=== PATIENT | female | born 1945 | race Caucasian/White ===

== ENCOUNTER 2017-04-26 12:09 | Emergency (ER) | payer MEDICARE, OTHER ==
[~2017-04-26] VITALS: Ht 157.5 cm; Wt 101.2 kg
[~2017-04-26 12:09] MED LIST: AMLO5TAB2; ASCO500T2; ASPI-630; BIFI4CAP; DRON400T PO; FERR-36; FURO40TA4; GABA-586; GLIM1TAB2; HYDR100T24; ISOS120T; LABE200T2; LABE200T2 PO; LOSA100T6; MELO7.5T29; OMEP20TA63; POTA20TA82 PO; SENN-79 PO; WARF2.5T71; WARF5TAB7; [UNRECOGNIZED DRUG - CODE] PO
--- NOTE | 2017-04-26 13:10 | PHYS DOC ---
Past Medical History Past Medical History: A-Fib, Anemia, Diabetes-Type II, GERD, Hypertension, Other Additional Past Medical Histor: CHRONIC NECK/BACK PAIN Past Surgical History: Appendectomy, Knee Replacement, Tonsillectomy, Other Additional Past Surgical Histo: D&C, Cardiac Cath, BREAST BX Alcohol Use: None Drug Use: None Adult General Chief Complaint Chief Complaint: HIP PAIN HPI HPI Patient is pleasant 71-year-old female with history of chronic neck and back pain who presents with hip pain that began a week ago. Patient was seen in urgent care told she had bursitis and placed on anti-inflammatories and steroids. Patient has noted increasing pain over the right hip with no obvious trauma. She denies any fevers, chills, rash she has increased pain with range of motion and ambulation. She denies any numbness and tingling to the legs or the buttocks. She denies any UTI symptoms, nausea, vomiting, diarrhea or other symptoms. Patient denies any back pain or abdominal pain. She says pain is a 10 of 10 with walking it is tolerable at rest 5 out of 10. She had an episode like this a year ago around the same time which she was not able to discover the cause. Review of Systems Review of Systems Constitutional: Denies fever or chills [] Eyes: Denies change in visual acuity, redness, or eye pain [] HENT: Denies nasal congestion or sore throat [] Respiratory: Denies cough or shortness of breath [] Cardiovascular: No additional information not addressed in HPI [] GI: Denies abdominal pain, nausea, vomiting, bloody stools or diarrhea [] : Denies dysuria or hematuria [] Musculoskeletal: She has chronic lower back pain chronic back pain Integument: Denies rash or skin lesions [] Neurologic: Denies headache, focal weakness or sensory changes [] Endocrine: Denies polyuria or polydipsia [] All other systems were reviewed and found to be within normal limits, except as documented in this note. Current Medications Current Medications Current Medications Medications (Trade) Dose Ordered Sig/Katelynn Start Time Stop Time Status Last Admin Dose Admin Ketorolac Tromethamine (Toradol Im) 60 mg 1X ONCE 04/26/17 13:15 04/26/17 13:16 DC 04/26/17 13:40 60 MG Allergies Allergies Allergies Coded Allergies Type Severity Reaction Last Updated Verified benazepril HCl Allergy Intermediate "red face" 08/24/13 Yes Physical Exam Physical Exam Other vital signs recorded on the chart patient noted to be very hypertensive Constitutional: Well developed, well nourished, no acute distress, non-toxic appearance. [] Cardiovascular:Heart rate regular rhythm, no murmur [] Lungs & Thorax: Bilateral breath sounds clear to auscultation [] Abdomen: Bowel sounds normal, soft, no tenderness, no masses, no pulsatile masses. [] Skin: Warm, dry, no erythema, no rash. [] Back: Patient is significant tenderness to palpation over the lateral aspect of her right hip over this. And the Anterior superior iliac crest crest there is no bony deformity negative pelvic rock Extremities: No tenderness, no cyanosis, no clubbing, ROM intact, no edema. [] Neurologic: Alert and oriented X 3, normal motor function, normal sensory function, no focal deficits noted. [] Psychologic: Affect normal, judgement normal, mood normal. [] Current Patient Data Vital Signs Vital Signs Date Time Temp Pulse Resp B/P (MAP) Pulse Ox O2 Delivery O2 Flow Rate FiO2 04/26/17 12:32 88 193/69 (110) Room Air 04/26/17 12:13 98.3 20 97 98.3 Lab Values Laboratory Tests Test 04/26/17 13:08 White Blood Count 14.9 x10^3/uL (4.0-11.0) H Red Blood Count 5.47 x10^6/uL (3.50-5.40) H Hemoglobin 13.1 g/dL (12.0-15.5) Hematocrit 41.1 % (36.0-47.0) Mean Corpuscular Volume 75 fL (79-100) L Mean Corpuscular Hemoglobin 24 pg (25-35) L Mean Corpuscular Hemoglobin Concent 32 g/dL (31-37) Red Cell Distribution Width 16.8 % (11.5-14.5) H Platelet Count 247 x10^3/uL (140-400) Neutrophils (%) (Auto) 86 % (31-73) H Lymphocytes (%) (Auto) 8 % (24-48) L Monocytes (%) (Auto) 5 % (0-9) Eosinophils (%) (Auto) 0 % (0-3) Basophils (%) (Auto) 0 % (0-3) Neutrophils # (Auto) 12.9 x10^3uL (1.8-7.7) H Lymphocytes # (Auto) 1.3 x10^3/uL (1.0-4.8) Monocytes # (Auto) 0.8 x10^3/uL (0.0-1.1) Eosinophils # (Auto) 0.0 x10^3/uL (0.0-0.7) Basophils # (Auto) 0.0 x10^3/uL (0.0-0.2) Platelet Estimate Pending C-Reactive Protein, Quantitative 4.6 mg/L (0-3.3) H Laboratory Tests 04/26/17 13:08 EKG EKG [] Radiology/Procedures Radiology/Procedures [] [facility] [address] [place] [address] IMAGING REPORT Signed PATIENT: VANNESA GLASER ACCOUNT: [id number] : 1945 LOCATION: ER AGE: 71 SEX: F EXAM STATUS: REG ER ORD. PHYSICIAN: ЕЛЕНА SAENZ MD REASON: right hip pain PROCEDURE: CT PELVIS WO CONTRAST CT of the pelvis without contrast, 04/26/2017: History: Right hip pain Noncontrast scans were obtained with multiplanar reconstructions produced. No fracture or destructive bony lesion is seen. There is mild narrowing of both hip joints with mild marginal spurring. The periarticular soft tissues are unremarkable. There is moderate facet joint arthropathy in the lower lumbar spine with a mild chronic spondylolisthesis at L4-5. There is mild associated central spinal stenosis and foraminal narrowing bilaterally at L4-5. No pelvic mass or unusual fluid collection is seen. There are moderate arterial calcifications. No pelvic or inguinal adenopathy is evident. IMPRESSION: 1. No acute bony abnormality is detected. 2. Mild degenerative change at both hip joints. 3. Degenerative change in the lower lumbar spine with a mild associated chronic spondylolisthesis at L4-5 PQRS Compliance Statement: One or more of the following individualized dose reduction techniques were utilized for this examination: 1. Automated exposure control 2. Adjustment of the mA and/or kV according to patient size 3. Use of iterative reconstruction technique DICTATED and SIGNED BY: DENZEL FAIR MD DATE: 04/26/17 [id number] CC: ЕЛЕНА SAENZ MD; SREE PANDA Jr, MD ~ Course & Med Decision Making Course & Med Decision Making Pertinent Labs and Imaging studies reviewed. (See chart for details) []Patient presents with hip pain over the lateral aspect of the right hip that is somewhat reproducible on physical exam of the lateral aspect this. Crest and over the lateral bursa. There is no warmth, no rash, no soft tissue swelling. Patient admits it hurts when she walks although when she sitting down it is minimally uncomfortable. Patient denies any fevers, chills, night sweats, other systemic symptoms. Patient is been on steroids for last few days and has not improved symptoms. Patient is an elevated white count which might be associated with a steroid usage as opposed inflammation. Patient's CRP is mildly elevated although there is no evidence of inflammation. I concern is a bursitis that is been under treated with NSAIDs and Tylenol. I will also prescribe her exercises for iliotibial band syndrome and some for breakthrough pain if necessary. I will have her follow-up with her primary care doctor for continued management and possible inter-bursitis injections if necessary if after 4 weeks she does not have any improvement. Dragon Disclaimer Dragon Disclaimer This electronic medical record was generated, in whole or in part, using a voice recognition dictation system. Departure Departure Impression: Primary Impression: Hip bursitis Disposition: 01 HOME, SELF-CARE Condition: IMPROVED Referrals: SREE PANDA Jr, MD (PCP) Patient Instructions: Hip Bursitis Additional Instructions: discharge: I've spoken with the patient and/or caregivers. I've explained the patient's condition, diagnosis and treatment plan based on information available to me at this time. I've answered the patient's and/or caregivers questions and addressed any concerns. The patient and/or caregivers have a good understanding the patient's diagnosis, condition and treatment plan as can be expected at this point. Vital signs have been stabilized. The patient's condition is stable for discharge from the emergency department. The patient will pursue further outpatient evaluation with her primary care provider or other designated consulting physician as outlined in the discharge instructions. Patient and/or caregivers are agreeable to this plan of care and follow-up instructions have been explained in detail. The patient and/or caregivers have received these instructions in written format and expressed understanding of these discharge instructions. The patient and her caregivers are aware that if any significant change in condition or worsening of symptoms should prompt him to immediately return to this of the closest emergency department. If an emergent department is not readily available I would encourage him to call 911. Scripts Ibuprofen (IBUPROFEN) 400 Mg Tablet 400 MG PO PRN Q6HRS Y for INFLAMMATION for 10 Days, TAB Prov: ЕЛЕНА SAENZ MD 04/26/17 Hydrocodone Bit/Acetaminophen (HYDROCODONE-APAP 5-325 ) 1 Each Tablet 1-2 TAB PO PRN Q6HRS Y for PAIN for 5 Days, #10 TAB 0 Refills Prov: ЕЛЕНА SAENZ MD 04/26/17 ЕЛЕНА SAENZ MD Apr 26, 2017 13:10
[2017-04-26] MEDS ORDERED: KETOROLAC 60 MG/2 ML INJ. IM ONE (13:15)
[2017-04-26 13:19] LABS: BASO % 0 % (0-3); EOS % 0 % (0-3); HEMATOCRIT 41.1 % (36.0-47.0); HEMOGLOBIN 13.1 g/dL (12.0-15.5); LYMPH # 1.3 x10^3/uL (1.0-4.8); LYMPH % 8 % (24-48); MEAN CORPUSCULAR HEMOGLOBIN 24 pg (25-35); MEAN CORPUSCULAR HGB CONC 32 g/dL (31-37); MEAN CORPUSCULAR VOLUME 75 fL (79-100); MONO % 5 % (0-9); NEUT % 86 % (31-73); PLATELET COUNT 247 x10^3/uL (140-400); RED BLOOD COUNT 5.47 x10^6/uL (3.50-5.40); RED CELL DISTRIBUTION WIDTH 16.8 % (11.5-14.5); WHITE BLOOD COUNT 14.9 x10^3/uL (4.0-11.0)
--- NOTE | 2017-04-26 13:40 | RAD ---
CT of the pelvis without contrast, 04/26/2017: History: Right hip pain Noncontrast scans were obtained with multiplanar reconstructions produced. No fracture or destructive bony lesion is seen. There is mild narrowing of both hip joints with mild marginal spurring. The periarticular soft tissues are unremarkable. There is moderate facet joint arthropathy in the lower lumbar spine with a mild chronic spondylolisthesis at L4-5. There is mild associated central spinal stenosis and foraminal narrowing bilaterally at L4-5. No pelvic mass or unusual fluid collection is seen. There are moderate arterial calcifications. No pelvic or inguinal adenopathy is evident. IMPRESSION: 1. No acute bony abnormality is detected. 2. Mild degenerative change at both hip joints. 3. Degenerative change in the lower lumbar spine with a mild associated chronic spondylolisthesis at L4-5 PQRS Compliance Statement: One or more of the following individualized dose reduction techniques were utilized for this examination: 1. Automated exposure control 2. Adjustment of the mA and/or kV according to patient size 3. Use of iterative reconstruction technique
[2017-04-26] MEDS ORDERED: IBUP-1027 PO (14:23)
[2017-04-26] MEDS ORDERED: HYDR-2758 PO (14:23)
[2017-04-26 14:29] VITALS: BP 174/81
[2017-04-26 14:47] LABS: ANISOCYTOSIS SLIGHT; HYPOCHROMIA SLIGHT; OVALOCYTES FEW; PLT ESTIMATE ADEQUATE (ADEQUATE)
== END 2017-04-26 14:38 | disposition home or self-care (01) ==
LOC: ER 12:09
DX: M70.71 Other bursitis of hip, right hip (principal); G89.29 Other chronic pain; M54.5 Low back pain; M54.2 Cervicalgia; I48.91 Unspecified atrial fibrillation; E11.9 Type 2 diabetes mellitus without complications; K21.9 Gastro-esophageal reflux disease without esophagitis; I10 Essential (primary) hypertension; Z88.8 Allergy status to other drugs, medicaments and biological substances
CPT/HCPCS: 36415; 72192; 85007; 85025; 85651; 86140; 96372; 99285; J1885

== ENCOUNTER → 2018-02-20 | Outpatient (CLI) | payer MEDICARE, OTHER ==
[~2018-02-20] MED LIST changes: -AMLO5TAB2; +AMLO5TAB7; +HYDR-2758 PO; +IBUP-1027 PO; -LABE200T2; -LABE200T2 PO; +LABE200T4; +LABE200T4 PO; -LOSA100T6; +LOSA100T7; +WARF-31; -WARF5TAB7
--- NOTE | 2018-02-20 14:01 | CARD ---
MR#: [id number] Date of Study: 02/20/2018 Ordering Physician: MIKE SANDERS, Referring Physician: MIKE SANDERS Tech: Whitney Juarez RDCS APPROVED REPORT EXAM: Two-dimensional and M-mode echocardiogram with Doppler and color Doppler. Other Information Quality : Fair INDICATION Atrial Fibrillation 2D DIMENSIONS RVDd2.2 (2.9-3.5cm)Left Atrium(2D)4.8 (1.6-4.0cm) IVSd1.8 (0.7-1.1cm)Aortic Root(2D)2.9 (2.0-3.7cm) LVDd4.4 (3.9-5.9cm)LVOT Diameter2.0 (1.8-2.4cm) PWd1.4 (0.7-1.1cm)LVDs2.6 (2.5-4.0cm) FS (%) 30.0 %SV62.0 ml LVEF(%)60.0 (>50%) Aortic Valve AoV Peak Michael.140.2cm/sAoV VTI27.6cm AO Peak GR.7.9mmHgLVOT Peak Michael.94.3cm/s AO Mean GR.4mmHgAVA (VMAX)2.04cm2 JONA (VTI)2.30cm2 Mitral Valve MV E Sjjtoqyp195.3cm/sMV DECEL YHUQ619as MV A Jzmmmtmi64.7cm/sE/A Ratio3.6 Tricuspid Valve TR P. Uprlgqwu371qh/sRAP NMRVOQPY4qdRs TR Peak Gr.65zfMaEFTU75qcFe Pulmonary Vein S1 Qyahhaem88.9cm/sD2 Ncakpglg28.2cm/s LEFT VENTRICLE The left ventricle is normal size. There is mild to moderate concentric left ventricular hypertrophy. The left ventricular systolic function is normal and the ejection fraction is within normal range. T he Ejection Fraction is 55-60%. There is normal LV segmental wall motion. RIGHT VENTRICLE The right ventricle is normal size. The right ventricular systolic function is normal. ATRIA The left atrium is mildly dilated. The right atrium size is normal. The interatrial septum is intact with no evidence for an atrial septal defect or patent foramen ovale as noted on 2-D or Doppler imagi ng. AORTIC VALVE The aortic valve is calcified but opens well. Doppler and Color Flow revealed no significant aortic r egurgitation. There is no significant aortic valvular stenosis. MITRAL VALVE The mitral valve is calcified but opens well. There is no evidence of mitral valve prolapse. There is no mitral valve stenosis. Doppler and Color-flow revealed mild mitral regurgitation. TRICUSPID VALVE The tricuspid valve is normal in structure and function. Doppler and Color Flow revealed trace tricus pid regurgitation. The PA pressure was estimated at 32 mmHg. There is no tricuspid valve stenosis. PULMONIC VALVE The pulmonic valve is not well visualized. Doppler and Color Flow revealed no pulmonic valvular regur gitation. There is no pulmonic valvular stenosis. GREAT VESSELS The aortic root is normal in size. The ascending aorta is not well seen. The IVC is normal in size an d collapses >50% with inspiration. PERICARDIAL EFFUSION There is no evidence of significant pericardial effusion. Critical Notification Critical Value: No <Conclusion> The left ventricle is normal size. The left ventricular systolic function is normal and the ejection fraction is within normal range. The Ejection Fraction is 55-60%. There is mild to moderate concentric left ventricular hypertrophy. The left atrium is mildly dilated. There is no significant aortic valvular stenosis. Doppler and Color Flow revealed no significant aortic regurgitation. Doppler and Color-flow revealed mild mitral regurgitation. Doppler and Color Flow revealed trace tricuspid regurgitation. The PA pressure was estimated at 32 mmHg. Signed by : Matthew Walter MD Electronically Approved : 02/20/2018 14:01:08
== END | disposition home or self-care (01) ==
LOC: ECHO 12:51
PROVIDERS: ATTEND Internal Medicine Cardiovascular Disease
DX: I34.0 Nonrheumatic mitral (valve) insufficiency (principal); I48.2 Chronic atrial fibrillation; I10 Essential (primary) hypertension; E11.9 Type 2 diabetes mellitus without complications; K21.9 Gastro-esophageal reflux disease without esophagitis; Z90.49 Acquired absence of other specified parts of digestive tract; Z88.8 Allergy status to other drugs, medicaments and biological substances
CPT/HCPCS: 93306

== ENCOUNTER → 2018-07-01 | Outpatient (CLI) | payer MEDICARE, OTHER ==
[~2018-07-01] MED LIST changes: -GABA-586; +GABA300C18; -HYDR-2758 PO; +HYDR-2761 PO; +LOSA100T14; -LOSA100T7; -SENN-79 PO; +SENN-80 PO
--- NOTE | 2018-07-01 14:40 | KCIC ---
HIP RIGHT 2V WITH PELVIS, KNEE STANDING BILAT AP History: Osteoarthritis, progressive right hip pain, right knee replacement.. Comparison: None are available AP pelvis with two-view right hip No evidence of an acute fracture. The joint spaces are intact with minimal marginal spurring. Degenerative changes at the lower spine. Vascular calcifications. Moderate retained stool throughout the colon. IMPRESSION: No acute radiographic finding Bilateral standing AP single view knee FINDINGS: There is a right knee replacement. Moderate to severe narrowing of the medial compartment of the left knee with subchondral sclerosis. IMPRESSION: 1. Right knee replacement. 2. Left knee primary osteoarthritis. Electronically signed by: Anthony Acevedo MD (07/01/2018 2:35 PM) [facility]
--- NOTE | 2018-07-01 15:51 | KCIC ---
MRI Cervical Spine Without Contrast History: Chronic neck pain and stiffness, tension Technique: Multiplanar, multi sequential noncontrast MR imaging was performed of the cervical spine. Comparison: None Findings: There is motion degradation. There is straightening of the cervical spine. Cervical cord caliber is within normal limits, no expansile signal change, limited evaluation for subtle signal change due to motion artifact. Cervical vertebral body stature is overall maintained. There is negligible anterior spondylolisthesis C5-6. There is moderate to severe degenerative disc disease C6-7 and minimally at C5-6. There is no convincing marrow edema. C2-C3: Spinal canal and neural foramina are adequate. C3-C4: Spinal canal and neural foramina are overall adequate. There is left facet degenerative change. C4-C5: There is negligible bulge. Spinal canal and neural foramina are overall adequate. There is likely mild right uncovertebral degenerative change. C5-C6: There is negligible disc osteophyte complex and bulge, central canal adequate about 11 mm. There is left facet hypertrophic change contributing to likely moderate to severe narrowing of the left neural foramen, right neural foramen not significantly narrowed. C6-C7: There is minimal disc osteophyte complex and bulge, central canal minimally narrowed to about 9 mm. There is left uncovertebral degenerative change. There is also at least mild facet degenerative change bilaterally. Right neural foramen is likely adequate, probable moderate to severe narrowing of the left neural foramen. C7-T1: Spinal canal is overall adequate. Neural foramina are not significantly narrowed. Impression: 1. Exam is degraded by motion as stated. There is mild spinal stenosis C6-7. There is moderate to severe degenerative disc disease C6-7 and minimally at C5-6, mild spondylosis. Neural foramina are poorly characterized due to motion, suspected moderate to severe narrowing on the left at C5-6 and C6-7 due to facet and uncovertebral degenerative change. Electronically signed by: Tru Johnson MD (07/01/2018 3:47 PM) [facility]
== END | disposition home or self-care (01) ==
LOC: KCIC MRI 12:44
PROVIDERS: ATTEND Physical Medicine & Rehabilitation
DX: M50.323 Other cervical disc degeneration at C6-C7 level (principal); M43.12 Spondylolisthesis, cervical region; M48.02 Spinal stenosis, cervical region; M17.12 Unilateral primary osteoarthritis, left knee; M47.816 Spondylosis without myelopathy or radiculopathy, lumbar region; M25.551 Pain in right hip; Z96.651 Presence of right artificial knee joint
CPT/HCPCS: 72141; 73502; 73565

== ENCOUNTER → 2019-03-26 | Outpatient (CLI) | payer MEDICARE, OTHER ==
[~2019-03-26] MED LIST changes: +AMLO5TAB10; -AMLO5TAB7; -GLIM1TAB2; +GLIM1TAB3
--- NOTE | 2019-03-26 12:51 | CARD ---
MR#: [id number] Date of Study: 03/26/2019 Ordering Physician: MIKE GARCIA, Referring Physician: Porsche PEREIRA: Carolina Regan RDCS APPROVED REPORT EXAM: Two-dimensional and M-mode echocardiogram with Doppler and color Doppler. Other Information Quality : Technically LimitedHR: 84bpm Rhythm : NSRTechnically limited study due to body habitus. INDICATION Atrial Fibrillation 2D DIMENSIONS RVDd3.7 (2.9-3.5cm)Left Atrium(2D)4.7 (1.6-4.0cm) IVSd1.1 (0.7-1.1cm)Aortic Root(2D)2.4 (2.0-3.7cm) LVDd5.9 (3.9-5.9cm)LVOT Diameter1.2 (1.8-2.4cm) PWd1.1 (0.7-1.1cm)LVDs3.4 (2.5-4.0cm) FS (%) 42.6 %SV124.3 ml LVEF(%)70.0 (>50%) Aortic Valve AoV Peak Michael.165.2cm/sAoV VTI33.7cm AO Peak GR.10.9mmHgLVOT Peak Michael.121.1cm/s LVOT VTI 25.13cmAO Mean GR.7mmHg JONA (VMAX)2.79jp1BNO (VTI)2.20cm2 Mitral Valve MV E Iistwsoi78.5cm/sMV DECEL ITZE617ak MV JHW14jqEHO (PHT)2.91cm2 Pulmonary Valve PV Peak Tbdwlruu47.4cm/sPV Peak Grad.1mmHg Tricuspid Valve TR P. Aysnvjyz679qm/sRAP FFEJFZVC9vbHa TR Peak Gr.35coEaPWVY93afEh LEFT VENTRICLE The left ventricle is normal size. There is borderline to mild concentric left ventricular hypertroph y. The left ventricular systolic function is normal. The Ejection Fraction is 60-65%. There is normal LV segmental wall motion. RIGHT VENTRICLE The right ventricle is borderline dilated. There is normal right ventricular wall thickness. The righ t ventricular systolic function is normal. ATRIA The left atrium is moderately dilated. The right atrium is mildly dilated. The interatrial septum is intact with no evidence for an atrial septal defect or patent foramen ovale as noted on 2-D or Dopple r imaging. AORTIC VALVE The aortic valve is calcified but opens well. The aortic valve is trileaflet. Doppler and Color Flow revealed no significant aortic regurgitation. There is no significant aortic valvular stenosis. MITRAL VALVE The mitral valve is normal in structure and function. There is no evidence of mitral valve prolapse. There is no mitral valve stenosis. Doppler and Color-flow revealed trace to mild mitral regurgitation . TRICUSPID VALVE The tricuspid valve is normal in structure and function. Doppler and Color Flow revealed mild tricusp id regurgitation. The PA pressure was estimated at 23 mmHg. There is no tricuspid valve prolapse or v egetation. There is no tricuspid valve stenosis. PULMONIC VALVE The pulmonic valve is not well visualized. GREAT VESSELS The aortic root is normal in size. The ascending aorta is normal in size. The IVC was not visualized. PERICARDIAL EFFUSION There is no evidence of significant pericardial effusion. Critical Notification Critical Value: No <Conclusion> The left ventricular systolic function is normal. The Ejection Fraction is 60-65%. There is normal LV segmental wall motion. The left atrium is moderately dilated. Trace to mild mitral regurgitation. Mild tricuspid regurgitation. The PA pressure was estimated at 23 mmHg. There is no evidence of significant pericardial effusion. Signed by : Mike Garcia, Electronically Approved : 03/26/2019 12:51:17
== END | disposition home or self-care (01) ==
LOC: ECHO 10:59
PROVIDERS: ATTEND Internal Medicine Cardiovascular Disease
DX: I08.3 Combined rheumatic disorders of mitral, aortic and tricuspid valves (principal); I11.9 Hypertensive heart disease without heart failure; I48.21 Permanent atrial fibrillation
CPT/HCPCS: 93306

== ENCOUNTER 2020-05-06 11:23 | Emergency (ER) | payer MEDICARE, OTHER ==
[~2020-05-06] VITALS: Ht 157.5 cm; Wt 100.0 kg
[~2020-05-06 11:23] MED LIST changes: +AMLO-186; -AMLO5TAB10; -ASCO500T2; +ASCO500T4; -GLIM1TAB3; +GLIM1TAB7; +POTA20TA4 PO; -POTA20TA82 PO; +SENN-182 PO; -SENN-80 PO
[2020-05-06] MEDS ORDERED: hydrALAZINE 25 MG TABLET PO SCH (11:45)
[2020-05-06] MEDS ORDERED: hydrALAZINE 25 MG TABLET PO ONE (11:45)
[2020-05-06] MEDS ORDERED: cloNIDine HCL 0.1 MG TABLET PO ONE (13:30)
--- NOTE | 2020-05-06 13:53 | ED.ADGEN ---
Past Medical History Past Medical History: A-Fib, Anemia, Diabetes-Type II, GERD, Hypertension, Other Additional Past Medical Histor: CHRONIC NECK/BACK PAIN Past Surgical History: Appendectomy, Knee Replacement, Tonsillectomy, Other Additional Past Surgical Histo: D&C, Cardiac Cath, BREAST BX Smoking Status: Never Smoker Alcohol Use: None Drug Use: None General Adult EDM: Chief Complaint: NOSEBLEED HPI: HPI: Patient is 74-year-old female past medical history of anticoagulant use and epistaxis who presents to the emergency room after having right-sided nosebleed. Lasted about 45 minutes and stopped prior to arrival. Patient has had multiple bleeds in the past. It has been a long time since she has required packing. She is not taking her morning medications yet. Review of Systems: Review of Systems: Complete ROS is negative unless otherwise documented in HPI Current Medications: Current Medications Medications (Trade) Dose Ordered Sig/Katelynn Start Time Stop Time Status Last Admin Dose Admin Clonidine HCl (Catapres) 0.1 mg 1X ONCE 05/06/20 13:30 05/06/20 13:31 DC 05/06/20 13:35 0.1 MG Hydralazine HCl (Apresoline) 50 mg 1X ONCE 05/06/20 11:45 05/06/20 11:46 DC 05/06/20 12:09 50 MG Allergies: Allergies: Allergies Coded Allergies Type Severity Reaction Last Updated Verified benazepril HCl Allergy Intermediate "red face" 08/24/13 Yes Physical Exam: PE: General: Awake, alert, NAD. Well Nourished, well hydrated. Cooperative HEENT: Atraumatic, EOMI, PERRL, airway patent, moist oral mucosa, dried blood in right nare without active bleeding Neck: Supple, trachea midline Respiratory: CTA bilaterally, normal effort, no wheezing/crackles CV: RRR, no murmur, cap refill <2 GI: Soft, nondistended, nontender, no masses MSK: No obvious deformities Skin: Warm, dry, intact Neuro: A&O x3, speech NL, sensory and motor grossly intact, no focal deficits Psych: Normal affect, normal mood, not suicidal or homicidal Current Patient Data: Vital Signs: Vital Signs Date Time Temp Pulse Resp B/P (MAP) Pulse Ox O2 Delivery O2 Flow Rate FiO2 05/06/20 13:55 84 20 94 05/06/20 13:35 183/83 05/06/20 11:25 98.3 Room Air 98.3 EKG: EKG: [] Heart Score: Risk Factors: Risk Factors: DM, Current or recent (<one month) smoker, HTN, HLP, family history of CAD, obesity. Risk Scores: Score 0 - 3: 2.5% MACE over next 6 weeks - Discharge Home Score 4 - 6: 20.3% MACE over next 6 weeks - Admit for Clinical Observation Score 7 - 10: 72.7% MACE over next 6 weeks - Early Invasive Strategies Radiology/Procedures: Radiology/Procedures: [] Course & Med Decision Making: Course & Med Decision Making Pertinent Labs and Imaging studies reviewed. (See chart for details) Patient is 74-year-old female who presents to the emergency room with epistaxis. Bleeding stopped prior to arrival. Patient was given medications for blood pressure. She will take her blood pressure medication when she gets home. I recommended that if she continues to have issues she should follow-up with an ENT specialist. Patient's test results and vitals while in the ED were fully reviewed and discussed with the patient. Patient is stable and at this time does not need admission to the hospital. We have discussed strict return precautions and the importance of following up with their Primary Care Physician. Patient stated understanding and was given an opportunity to ask any questions. Patient is in agreement with plan. Alisaon Disclaimer: Jeremi Disclaimer: This electronic medical record was generated, in whole or in part, using a voice recognition dictation system. Departure Departure Impression: Primary Impression: Anticoagulant effect Additional Impression: Epistaxis Disposition: 01 DC HOME SELF CARE/HOMELESS Condition: STABLE Referrals: BETH LO MD (PCP) Patient Instructions: Nosebleed Problem Qualifiers HESHAM CALVO MD May 06, 2020 13:53
[2020-05-06 13:55] VITALS: BP 190/88
== END 2020-05-06 14:10 | disposition home or self-care (01) ==
LOC: ER 11:23
DX: T45.515A Adverse effect of anticoagulants, initial encounter (principal); R04.0 Epistaxis; I48.91 Unspecified atrial fibrillation; E11.9 Type 2 diabetes mellitus without complications; K21.9 Gastro-esophageal reflux disease without esophagitis; I10 Essential (primary) hypertension; G89.29 Other chronic pain; Z88.8 Allergy status to other drugs, medicaments and biological substances; Y92.89 Other specified places as the place of occurrence of the external cause
CPT/HCPCS: 99285

== ENCOUNTER → 2020-06-16 | Outpatient (CLI) | payer MEDICARE, OTHER ==
--- NOTE | 2020-06-16 17:51 | CARD ---
MR#: [id number] Date of Study: 06/16/2020 Ordering Physician: MIKE SANDERS, Referring Physician: MIKE SANDERS, Tech: Lexie Naidu APPROVED REPORT EXAM: Two-dimensional and M-mode echocardiogram with Doppler and color Doppler. Other Information Quality : FairHR: 73bpm INDICATION Atrial Fibrillation RISK FACTORS Hypertension Diabetes 2D DIMENSIONS RVDd3.6 (2.9-3.5cm)Left Atrium(2D)4.7 (1.6-4.0cm) IVSd1.0 (0.7-1.1cm)Aortic Root(2D)2.7 (2.0-3.7cm) LVDd5.6 (3.9-5.9cm)LVOT Diameter2.1 (1.8-2.4cm) PWd1.2 (0.7-1.1cm)LVDs3.0 (2.5-4.0cm) FS (%) 45.7 %SV116.4 ml Aortic Valve AoV Peak Michael.156.2cm/sAoV VTI34.3cm AO Peak GR.9.8mmHgLVOT Peak Michael.121.3cm/s LVOT VTI 25.90cmAO Mean GR.6mmHg JONA (VMAX)2.84pp0YAG (VTI)2.63cm2 Mitral Valve MV E Gvyneqxk170.8cm/sMV E Peak Gr.123mmHg MV DECEL [id number] A Pdvkgohw66.7cm/s MV E Mean Gr.3mmHgMV [id number] E/A Ratio2.8MVA (PHT)4.06cm2 TDI E/Lateral E'18.1E/Medial E'16.7 Pulmonary Valve PV Peak Ilbryqqa22.3cm/sPV Peak Grad.4mmHg Tricuspid Valve TR P. Jlcnaalq765oj/sRAP DGLEFGLF7xzXi TR Peak Gr.85bxBnAZGL49wtVb Pulmonary Vein S1 Ueczighq75.6cm/sD2 Wfipsyyf45.2cm/s LEFT VENTRICLE The left ventricle is normal size. There is mild concentric left ventricular hypertrophy. The left ve ntricular systolic function is normal and the ejection fraction is within normal range. The Ejection Fraction is 55-60%. Wall motion consistent with conduction abnormality. RIGHT VENTRICLE The right ventricle is normal size. There is normal right ventricular wall thickness. The right ventr icular systolic function is normal. ATRIA The left atrium is mildly dilated. The right atrium size is normal. The interatrial septum is intact with no evidence for an atrial septal defect or patent foramen ovale as noted on 2-D or Doppler imagi ng. AORTIC VALVE The aortic valve is thickened but opens well. Doppler and Color Flow revealed no significant aortic r egurgitation. There is no significant aortic valvular stenosis. Calculated aortic valve area is 3.69 cm2 with maximum pressure gradient of 11 mmHg and mean pressure gradient of 6 mmHg. MITRAL VALVE The mitral valve is normal in structure and function. There is no evidence of mitral valve prolapse. There is no mitral valve stenosis with a mean gradient of 2.6 mmHg. Doppler and Color-flow revealed m oderate mitral regurgitation. TRICUSPID VALVE The tricuspid valve is normal in structure and function. Doppler and Color Flow revealed trace tricus pid regurgitation with an estimated PAP of 30 mmHg. There is no tricuspid valve stenosis. PULMONIC VALVE The pulmonic valve is not well visualized. Doppler and Color Flow revealed no pulmonic valvular regur gitation. GREAT VESSELS The aortic root is normal in size. The IVC is normal in size and collapses >50% with inspiration. PERICARDIAL EFFUSION There is no evidence of significant pericardial effusion. Critical Notification Critical Value: No <Conclusion> The left ventricle is normal size. The left ventricular systolic function is normal and the ejection fraction is within normal range. The Ejection Fraction is 55-60%. Wall motion consistent with conduction abnormality. There is mild concentric left ventricular hypertrophy. Doppler and Color Flow revealed no significant aortic regurgitation. There is no significant aortic valvular stenosis. Doppler and Color-flow revealed moderate mitral regurgitation. Doppler and Color Flow revealed trace tricuspid regurgitation with an estimated PAP of 30 mmHg. Signed by : Matthew Walter MD Electronically Approved : 06/16/2020 17:50:21
== END ==
LOC: ECHO 10:44
PROVIDERS: ATTEND Internal Medicine Cardiovascular Disease
DX: I34.0 Nonrheumatic mitral (valve) insufficiency (principal); I48.91 Unspecified atrial fibrillation
CPT/HCPCS: 93306

== ENCOUNTER → 2021-07-27 | Outpatient (CLI) | payer MEDICARE, OTHER ==
[~2021-07-27] MED LIST changes: -DRON400T PO; +DRON400T6 PO
--- NOTE | 2021-07-27 16:55 | CARD ---
MR#: [id number] Date of Study: 07/27/2021 Ordering Physician: MIKE SANDERS, Referring Physician: MIKE SANDERS Tech: Vidya Montoya [facility] APPROVED REPORT EXAM: Two-dimensional and M-mode echocardiogram with Doppler and color Doppler. Other Information Quality : AverageHR: 65bpm Rhythm : Atrial Fibrillation INDICATION Atrial Fibrillation RISK FACTORS Hypertension Obesity Hyperlipidemia Diabetes 2D DIMENSIONS RVDd3.6 (2.9-3.5cm)Left Atrium(2D)5.0 (1.6-4.0cm) IVSd1.4 (0.7-1.1cm)Aortic Root(2D)2.7 (2.0-3.7cm) LVDd4.6 (3.9-5.9cm)LVOT Diameter2.1 (1.8-2.4cm) PWd1.3 (0.7-1.1cm)LVDs2.8 (2.5-4.0cm) FS (%) 39.5 %SV69.7 ml LVEF(%)70.1 (>50%) Aortic Valve AoV Peak Michael.154.9cm/sAoV VTI30.4cm AO Peak GR.9.6mmHgLVOT Peak Michael.99.3cm/s AO Mean GR.5mmHgAVA (VMAX)2.24cm2 Tricuspid Valve TR P. Bfqdjfak648zv/sTR Peak Gr.28mmHg LEFT VENTRICLE The left ventricle is normal size. There is mild concentric left ventricular hypertrophy. The left ve ntricular systolic function is normal and the ejection fraction is within normal range. Estimated eje ction fraction 60%. There is normal LV segmental wall motion. Tissue Doppler imaging reveals moderate left ventricular diastolic dysfunction. RIGHT VENTRICLE The right ventricle is normal size. There is normal right ventricular wall thickness. The right ventr icular systolic function is normal. ATRIA The left atrium is mildly dilated. The right atrium is borderline dilated. The interatrial septum is intact with no evidence for an atrial septal defect or patent foramen ovale as noted on 2-D or Dopple r imaging. AORTIC VALVE The aortic valve is normal in structure and function. Doppler and Color Flow revealed trace aortic re gurgitation. There is no significant aortic valvular stenosis. MITRAL VALVE The mitral valve is normal in structure and function. There is no evidence of mitral valve prolapse. There is no mitral valve stenosis. Doppler and Color-flow revealed mild mitral regurgitation. TRICUSPID VALVE The tricuspid valve is normal in structure and function. Doppler and Color Flow revealed trace tricus pid regurgitation. Estimated PAP 32 mmHg. There is no tricuspid valve stenosis. PULMONIC VALVE Doppler and Color Flow revealed no pulmonic valvular regurgitation. There is no pulmonic valvular jose angel nosis. GREAT VESSELS The aortic root is normal in size. The ascending aorta is normal in size. The IVC is normal in size a nd collapses >50% with inspiration. PERICARDIAL EFFUSION There is no evidence of significant pericardial effusion. Critical Notification Critical Value: No <Conclusion> The left ventricular systolic function is normal and the ejection fraction is within normal range. E stimated ejection fraction 60%. There is normal LV segmental wall motion. Signed by : Magno Luke, Electronically Approved : 07/27/2021 16:55:20
== END ==
LOC: ECHO 14:41
PROVIDERS: ATTEND Internal Medicine Cardiovascular Disease
DX: I34.0 Nonrheumatic mitral (valve) insufficiency (principal); I51.7 Cardiomegaly; I48.91 Unspecified atrial fibrillation
CPT/HCPCS: 93306; C8929